=== PATIENT | female | born 1955 | race African-American/Black ===

== ENCOUNTER → 2024-09-23 | Outpatient (CLI) | payer MEDICARE, BC ==
--- NOTE | 2024-09-24 07:31 | CA ---
Exercise Stress Test Report Name: Rosalia De Leon Exam Date: 09/23/2024 11:34 Exam Location: [facility] Ht (in): 67 Wt (lb): 237 BSA: 2.17 Ordering Phys: Alexus Garcia PAC Referring Phys: ALEXUS GARCIA Technologist: Marck Dunlap Age: 69 Gender: F : 1955 Procedure CPT: Indications: R06.09 Dyspnea on exertion ICD-10 Codes: Patient History: DIFFICULTY IN BREATHING, HYPERCHOLESTEROLEMIA Medications: Meds past 24 hrs: Pretest Chest Pain: STRESS TEST Gabe Protocol Exercise Duration (min:sec): 06:[address] Depressions (mm): Angina Score: Turcios Score: Resting HR (bpm): 98 Peak HR (bpm): 143 Resting BP (mmHg): 142 / 89 Peak BP (mmHg): 207 / 89 MPHR: 152 Target HR: 129 % MPHR: 94 METS: 7.1 Total Dose: Peak Dose: Atropine: Double Product: 55360 BP Response: Stress Termination: TARGET HR REACHED/MAX EXERTION Stress Symptoms: NO SYMPTOMS Stress Summary: ECG ANALYSIS Resting ECG: Stress ECG: CONCLUSIONS Reason: Shortness of breath on exertion, dyslipidemia Exercise capacity of 6 minutes, 7.1 METS of workload achieved Normal heart rate response Hypertensive response to exercise. Peak blood pressure 207/89 mmHg No ECG evidence for ischemia at this workload level Occasional PVCs Dr. Merrick Blanco MD (Electronically Signed) Final Date: 24 September 2024 07:30
== END | disposition home or self-care (01) ==
LOC: RADNMMAIN 11:08
PROVIDERS: ATTEND Physician Assistant Medical
DX: R06.09 Other forms of dyspnea (principal); E78.00 Pure hypercholesterolemia, unspecified; I10 Essential (primary) hypertension
CPT/HCPCS: 93017

== ENCOUNTER → 2024-09-23 | Outpatient (CLI) | payer MEDICARE, BC ==
--- NOTE | 2024-09-23 15:25 | US ---
EXAMINATION TYPE: US kidneys/renal and bladder DATE OF EXAM: 09/23/2024 COMPARISON: NONE CLINICAL INDICATION: Female, 69 years old with history of N18.2 CKD STAGE 2; TECHNIQUE: Grayscale imaging of the bilateral kidneys and urinary bladder: FINDINGS: EXAM MEASUREMENTS: Right Kidney: 9.6 x 5.1 x 5.0 cm Left Kidney: 10.9 x 5.3 x 4.7 cm Right Kidney: no hydronephrosis or masses seen Left Kidney: no hydronephrosis or masses seen Bladder: wnl Bilateral Jets seen: Yes No hydronephrosis, shadowing renal calculi or solid renal masses. Corticomedullary differentiation is maintained bilaterally. No significant cortical thinning identified. The urinary bladder is anechoic without focal lesion identified. Bilateral ureteral jets identified. IMPRESSION: No hydronephrosis or nephrolithiasis. [facility] Melchor, , 09/23/2024 3:22 PM
== END | disposition home or self-care (01) ==
LOC: RADUSWWP 14:56
PROVIDERS: ATTEND Family Medicine
DX: N18.2 Chronic kidney disease, stage 2 (mild) (principal)
CPT/HCPCS: 76770

== ENCOUNTER → 2024-10-08 | Outpatient (CLI) | payer MEDICARE, BC ==
--- NOTE | 2024-10-08 15:12 | MM ---
Reason for Exam: Screening (asymptomatic). Patient History: Menarche at age 14. First Full-Term at age 21. Postmenopausal. Patient has history of breast feeding. Risk Values: Kandace 5 year model risk: 1.7%. NCI Lifetime model risk: 5.3%. Tissue Density: There are scattered areas of fibroglandular density. Findings: Analyzed By CAD. Right breast: There is no suspicious group of microcalcifications or new suspicious mass. Left breast: There is no suspicious group of microcalcifications or new suspicious mass. Overall Assessment: Negative, BI-RAD 1 Management: Screening Mammogram of both breasts in [address] [facility] will attempt to contact patient to return for supplemental views and ultrasound if indicated. Patient should continue monthly self-breast exams. A clinical breast exam by your physician is recommended on an annual basis. This exam should not preclude additional follow-up of suspicious palpable abnormalities. Note on Kandace scores and lifetime risk: 1. A Kandace score greater than 3% is considered moderate risk. If this is the case, consider specialist referral to assess eligibility for a risk reducing agent. 2. If overall lifetime risk for the development of breast cancer is 20% or higher, the patient may qualify for future screening with alternating mammogram and breast MRI. [facility], , 10/08/2024 3:09 PM. Electronically signed and approved by: Rakan Goldstein DO
== END | disposition home or self-care (01) ==
LOC: RADMAMWWP 13:00
PROVIDERS: ATTEND Physician Assistant Medical
DX: Z12.31 Encounter for screening mammogram for malignant neoplasm of breast (principal); R92.323 Mammographic fibroglandular density, bilateral breasts; Z78.0 Asymptomatic menopausal state
CPT/HCPCS: 77063; 77067